=== PATIENT | male | born 1990 | race Caucasian/White ===

== ENCOUNTER 2018-06-18 09:49 | Emergency (ER) | payer OTHER ==
[~2018-06-18] VITALS: Ht 182.9 cm; Wt 95.3 kg
[~2018-06-18 09:49] MED LIST: ATEN25 PO; AZIT250 PO; CEPH500 PO; DIPH50 PO; ESCI10 PO; HYDACE5 PO; Norco 5-325 Ta1 EACH PO; OMEP20ER PO; Percocet 5-3251 EACH PO; [UNRECOGNIZED DRUG - REMARK]; [UNRECOGNIZED DRUG - REMARK]
[2018-06-18] MEDS ORDERED: CEPH500 PO (13:15)
[2018-06-18] MEDS ORDERED: Percocet 10-321 EACH PO (13:15)
[2018-06-18] MEDS ORDERED: IBUP800 PO (13:15)
== END 2018-06-18 13:38 | disposition home or self-care (01) ==
LOC: ER 09:49
DX: S22.41XA Multiple fractures of ribs, right side, initial encounter for closed fracture (principal); S43.101A Unspecified dislocation of right acromioclavicular joint, initial encounter; S61.412A Laceration without foreign body of left hand, initial encounter; S01.112A Laceration without foreign body of left eyelid and periocular area, initial encounter; S09.93XA Unspecified injury of face, initial encounter; Y04.0XXA Assault by unarmed brawl or fight, initial encounter; I10 Essential (primary) hypertension
CPT/HCPCS: 12013; 71101; 73030; 99284-25

== ENCOUNTER → 2020-12-31 | Outpatient (CLI) | payer MEDICARE, OTHER ==
[~2020-12-31] MED LIST changes: +IBUP800 PO; +Percocet 10-321 EACH PO
== END ==
LOC: LAB 19:55 → LAB SHORT 19:55
DX: L02.511 Cutaneous abscess of right hand (principal); S61.011A Laceration without foreign body of right thumb without damage to nail, initial encounter
CPT/HCPCS: 87070; 87075; 87077; 87147; 87186; 87205

== ENCOUNTER → 2023-02-24 | Outpatient (CLI) | payer MEDICARE, OTHER | END | disposition home or self-care (01) | LOC: LAB 16:28 → LAB SHORT 16:28 | DX: R22.42 Localized swelling, mass and lump, left lower limb (principal) | CPT/HCPCS: 85379 ==